=== PATIENT | female | born 1955 | race Caucasian/White ===

== ENCOUNTER 2016-12-12 10:40 | Outpatient (CLI) | payer BC | END 2016-12-12 19:51 | disposition home or self-care (01) | LOC: SMA 10:40 | PROVIDERS: ATTEND Family Medicine | DX: Z12.31 Encounter for screening mammogram for malignant neoplasm of breast (principal) | CPT/HCPCS: 77067; G0202 ==

== ENCOUNTER 2018-12-07 10:19 | Outpatient (CLI) | payer BC | END 2018-12-07 19:29 | disposition home or self-care (01) | LOC: SMA 10:19 | PROVIDERS: ATTEND Physician Assistant Medical | DX: Z12.31 Encounter for screening mammogram for malignant neoplasm of breast (principal) | CPT/HCPCS: 77067 ==

== ENCOUNTER 2021-02-15 11:14 | Outpatient (CLI) | payer BC | END 2021-02-15 20:43 | disposition home or self-care (01) | LOC: SMA 11:14 | PROVIDERS: ATTEND Family Medicine | DX: Z12.31 Encounter for screening mammogram for malignant neoplasm of breast (principal) | CPT/HCPCS: 77067 ==